=== PATIENT | male | born 1965 | race Caucasian/White ===

== ENCOUNTER 2018-06-19 18:37 | Inpatient (IN) | payer BC ==
[~2018-06-19] VITALS: Ht 177.8 cm; Wt 77.1 kg
[2018-06-19 19:05] LABS: BILIRUBIN,URINE SMALL (NEG); CLARITY,URINE CLOUDY; NITRITE,URINE NEGATIVE (NEG); PROTEIN,URINE 100 mg/dL (NEG-TRACE); UROBILINOGEN,URINE 0.2 mg/dL (0.2 mg/dL)
[2018-06-19 19:10] LABS: BASO # 0.1 x10^3/uL (0.0-0.2); BASO % 1 % (0-3); EOS # 0.1 x10^3/uL (0.0-0.7); EOS % 1 % (0-3); HEMATOCRIT 41.2 % (39.0-53.0); HEMOGLOBIN 13.7 g/dL (13.0-17.5); LYMPH # 3.5 x10^3/uL (1.0-4.8); LYMPH % 30 % (24-48); MEAN CORPUSCULAR HEMOGLOBIN 30 pg (25-35); MEAN CORPUSCULAR HGB CONC 33 g/dL (31-37); MEAN CORPUSCULAR VOLUME 92 fL (79-100); MONO # 0.6 x10^3/uL (0.0-1.1); MONO % 5 % (0-9); NEUT # 7.3 x10^3uL (1.8-7.7); NEUT % 63 % (31-73); PLATELET COUNT 306 x10^3/uL (140-400); WHITE BLOOD COUNT 11.6 x10^3/uL (4.0-11.0)
[2018-06-19 19:11] LABS: COLOR,URINE BROWN
[2018-06-19 19:13] LABS: BACTERIA,URINE 0 /HPF (0-FEW); HYALINE CASTS, URINE OCCASIONAL /HPF; RBC,URINE TNTC /HPF (0-2); SQUAMOUS EPITHELIAL CELL,UR FEW /LPF; WBC,URINE 20-40 /HPF (0-4)
[2018-06-19 19:18] LABS: CALCIUM 9.3 mg/dL (8.5-10.1); CREATININE 1.3 mg/dL (0.7-1.3)
[2018-06-19 19:24] LABS: ALBUMIN 3.7 g/dL (3.4-5.0); ALBUMIN/GLOBULIN RATIO 0.9 (1.0-1.7); TOTAL BILIRUBIN 0.7 mg/dL (0.2-1.0); TOTAL PROTEIN 7.6 g/dL (6.4-8.2)
[2018-06-19] MEDS ORDERED: IV NORMAL SALINE 1000ML BAG 1,000 ML IV ONE ×2 (20:00)
[2018-06-19] MEDS ORDERED: cefTRIAXone IV Push 1 GM VIAL. IVP ONE (20:00)
[2018-06-19] MEDS ORDERED: KETOROLAC 30 MG/ML VIAL. IV ONE (20:30)
--- NOTE | 2018-06-19 20:51 | PHYS DOC ---
Past Medical History Past Medical History: High Cholesterol, Kidney Stone Additional Past Surgical Histo: LEFT SHOULDER ROTATOR CUFF, VASECTOMY Smoking: Cigarettes Additional Information: 1 PPD Alcohol Use: Occasionally Drug Use: None Adult General Chief Complaint Chief Complaint: FLANK PAIN [facility] HPI Patient is a 53 year old male who presents to the due to chief complaint of left flank pain. Patient states that the pain has been present for the last 3 days. Patient states that he went to [facility] and had a CAT scan which showed a left-sided kidney stone with hydronephrosis. At that time he also had a UTI and so patient was started on antibiotics. He was sent to urology yesterday where he went back could not afford the private pay jorge l. Patient comes to the ED today with increased pain in the left side. He also states that his urine is dark. Review of Systems Review of Systems Constitutional: Denies fever or chills [] Eyes: Denies change in visual acuity, redness, or eye pain [] HENT: Denies nasal congestion or sore throat [] Respiratory: Denies cough or shortness of breath [] Cardiovascular: No additional information not addressed in HPI [] GI: Complains of Left flank pain : Complains of dysuria Musculoskeletal: Denies back pain or joint pain [] Integument: Denies rash or skin lesions [] Neurologic: Denies headache, focal weakness or sensory changes [] Endocrine: Denies polyuria or polydipsia [] All other systems were reviewed and found to be within normal limits, except as documented in this note. Current Medications Current Medications Current Medications Medications (Trade) Dose Ordered Sig/Angi Start Time Stop Time Status Last Admin Dose Admin Ceftriaxone Sodium (Rocephin) 1 gm 1X ONCE 06/19/18 20:00 06/19/18 20:01 DC 06/19/18 19:53 1 GM Ketorolac Tromethamine (Toradol 30mg Vial) 30 mg 1X ONCE 06/19/18 20:30 06/19/18 20:31 DC 06/19/18 20:11 30 MG Sodium Chloride 1,000 ml @ 1,000 mls/hr 1X ONCE 06/19/18 20:00 06/19/18 20:59 DC 06/19/18 19:54 1,000 MLS/HR Allergies Allergies Physical Exam Physical Exam Constitutional: Well developed, well nourished, no acute distress, non-toxic appearance. HENT: Normocephalic, atraumatic, normocaphalic Eyes: PERRL, EOMI Neck: Normal range of motion, no tenderness, supple Cardiovascular:Heart rate regular rhythm, no murmur Resp: Bilateral breath sounds clear to auscultation Abdomen: Left flank tenderness Skin: Warm, dry, no erythema, no rash. Back: No tenderness, no CVA tenderness. Extremities: No tenderness, ROM intact, no edema. Neurologic: Alert and oriented X 3, normal motor function, normal sensory function, no focal deficits noted. Psychologic: Affect normal, judgement normal, mood normal. Current Patient Data Vital Signs Vital Signs Date Time Temp Pulse Resp B/P (MAP) Pulse Ox O2 Delivery O2 Flow Rate FiO2 06/19/18 20:48 68 16 130/73 (92) 100 Room Air 06/19/18 18:43 98.1 98.1 Lab Values Laboratory Tests Test 06/19/18 18:45 06/19/18 19:00 Urine Collection Type Unknown Urine Color Brown Urine Clarity Cloudy Urine pH 5.0 Urine Specific [place] 1.020 Urine Protein 100 mg/dL (NEG-TRACE) Urine Glucose (UA) Negative mg/dL (NEG) Urine Ketones (Stick) Trace mg/dL (NEG) Urine Blood Large (NEG) Urine Nitrite Negative (NEG) Urine Bilirubin Small (NEG) Urine Urobilinogen Dipstick 0.2 mg/dL (0.2 mg/dL) Urine Leukocyte Esterase Small (NEG) Urine RBC Tntc /HPF (0-2) Urine WBC 20-40 /HPF (0-4) Urine Squamous Epithelial Cells Few /LPF Urine Bacteria 0 /HPF (0-FEW) Urine Hyaline Casts Occasional /HPF Urine Mucus Mod /LPF White Blood Count 11.6 x10^3/uL (4.0-11.0) H Red Blood Count 4.50 x10^6/uL (4.30-5.70) Hemoglobin 13.7 g/dL (13.0-17.5) Hematocrit 41.2 % (39.0-53.0) Mean Corpuscular Volume 92 fL (79-100) Mean Corpuscular Hemoglobin 30 pg (25-35) Mean Corpuscular Hemoglobin Concent 33 g/dL (31-37) Red Cell Distribution Width 14.0 % (11.5-14.5) Platelet Count 306 x10^3/uL (140-400) Neutrophils (%) (Auto) 63 % (31-73) Lymphocytes (%) (Auto) 30 % (24-48) Monocytes (%) (Auto) 5 % (0-9) Eosinophils (%) (Auto) 1 % (0-3) Basophils (%) (Auto) 1 % (0-3) Neutrophils # (Auto) 7.3 x10^3uL (1.8-7.7) Lymphocytes # (Auto) 3.5 x10^3/uL (1.0-4.8) Monocytes # (Auto) 0.6 x10^3/uL (0.0-1.1) Eosinophils # (Auto) 0.1 x10^3/uL (0.0-0.7) Basophils # (Auto) 0.1 x10^3/uL (0.0-0.2) Sodium Level 136 mmol/L (136-145) Potassium Level 4.0 mmol/L (3.5-5.1) Chloride Level 100 mmol/L (98-107) Carbon Dioxide Level 27 mmol/L (21-32) Anion Gap 9 (6-14) Blood Urea Nitrogen 26 mg/dL (8-26) Creatinine 1.3 mg/dL (0.7-1.3) Estimated GFR (Cockcroft-Gault) 58.0 BUN/Creatinine Ratio 20 (6-20) Glucose Level 92 mg/dL (70-99) Calcium Level 9.3 mg/dL (8.5-10.1) Total Bilirubin 0.7 mg/dL (0.2-1.0) Aspartate Amino Transferase (AST) 17 U/L (15-37) Alanine Aminotransferase (ALT) 19 U/L (16-63) Alkaline Phosphatase 74 U/L (46-116) Total Protein 7.6 g/dL (6.4-8.2) Albumin 3.7 g/dL (3.4-5.0) Albumin/Globulin Ratio 0.9 (1.0-1.7) L Laboratory Tests 06/19/18 19:00 Laboratory Tests 06/19/18 19:00 EKG EKG [] Radiology/Procedures Radiology/Procedures [] Impressions: PROCEDURE: KUB Single view supine abdomen HISTORY: Left-sided pain. Single portable image obtained without prior for comparison. There is a small calcification overlying the lower right renal shadow could represent a calculus versus bowel content. Similar, possible small left renal calculus versus overlying density. Bowel gas pattern is nonobstructive. Difficult to exclude free intraperitoneal gas on this image. Skeletal structures appear grossly intact. IMPRESSION: Possible small renal calculi. Electronically signed by: Sunil Barger MD (06/19/2018 9:03 PM) [facility] Course & Med Decision Making Course & Med Decision Making Pertinent Labs and Imaging studies reviewed. (See chart for details) Ordered labs, UA, IV fluids. Labs show the patient has elevated WBC count. UA shows that patient has a UTI. CT scan results from [facility] shows that patient has a 5 mm stone in the left ureter with mild left-sided hydronephrosis. IV Rocephin given in the ED. IV pain medicine given the ED. N infected ureteral stone patient should be admitted to the hospital for further evaluation and treatment. Discussed results and plan of care with patient and family. We'll page hospitalist convex grinder for admission Discussed case with Dr. Ley who accepts admission. Dragon Disclaimer Dragon Disclaimer This electronic medical record was generated, in whole or in part, using a voice recognition dictation system. Departure Departure Referrals: UNKNOWN PCP NAME (PCP) CHANDNI RODRIGUEZ DO June 19, 2018 20:51
--- NOTE | 2018-06-19 21:06 | RAD ---
Single view supine abdomen HISTORY: Left-sided pain. Single portable image obtained without prior for comparison. There is a small calcification overlying the lower right renal shadow could represent a calculus versus bowel content. Similar, possible small left renal calculus versus overlying density. Bowel gas pattern is nonobstructive. Difficult to exclude free intraperitoneal gas on this image. Skeletal structures appear grossly intact. IMPRESSION: Possible small renal calculi. Electronically signed by: Sunil Barger MD (06/19/2018 9:03 PM) [facility]
[2018-06-19 22:20] VITALS: BP 106/62
[2018-06-20] MEDS ORDERED: TEMAZEPAM 15 MG CAPSULE PO PRN (01:45)
[2018-06-20] MEDS ORDERED: MORPHINE SULFATE 2 MG/ML VIAL. IV PRN (01:45)
[2018-06-20 02:55] VITALS: BP 94/52
[2018-06-20] MEDS: IV NORMAL SALINE 1000ML BAG 1,000 ML IV SCH ×2 (04:17→15:05)
[2018-06-20 07:00] VITALS: BP 102/64
--- NOTE | 2018-06-20 08:22 | NUR ---
SW following for discharge planning. Discussed with RN, pt is from home with spouse. Currently NPO, waiting urology consult to determine plan of care. No SW needs at this time. SW will continue to follow.
[2018-06-20] MEDS ORDERED: IOHEXOL 300 MG/ML 100ML VIAL. IV ONE (08:45)
[2018-06-20] MEDS ORDERED: CONTRAST GIVEN. MC PRN (09:00)
--- NOTE | 2018-06-20 09:14 | PDOC2 ---
ALEX LOPEZ APRN 06/20/18 0914: UROLOGY CONSULT Date of Consult Date of Consult DATE: 06/20/18 TIME: 09:06 Reason for Consult Reason for Consult: Possible Kidney stone Source Source: Patient History of Present Illness Reason for Visit: This 53 year old male was seen in [place] a couple of days ago and a CT scan was done at the ER. They told him he had a kidney stone on the right side and then dismissed him. The pain started back up again on the left side last night, alone with some Nausea and vomiting. He did have some dysuria but no hematuria. He is feeling fine right now, with pain zero/10 but is uncomfortable with going home until he is sure the stone is no longer there. This is the 4th of 5th time he has had a kidney stone. They usually pass on their own; he has never had to have surgery for them, but he is not sure that he will have this kind of luck this time. He denies LUTS, history of BPH or prostate cancer or other kidney problems. Past Medical History Cardiovascular: No pertinent hx Pulmonary: No pertinent hx GI: No pertinent hx Renal/: Other (4-5 times in the past has had kidney stones ) Current Problem List Problems: (1) Left ureteral stone (2) Ureterolithiasis Current Medications Current Medications Current Medications Ceftriaxone Sodium (Rocephin) 1 gm 1X ONCE IVP Last administered on 06/19/18at 1 9:53; Start 06/19/18 at 20:00; Stop 06/19/18 at 20:01; Status DC Info (CONTRAST GIVEN -- Rx MONITORING) 1 each PRN DAILY PRN MC SEE COMMENTS; Start 06/20/18 at 09:00; Stop 06/22/18 at 08:59 Iohexol (Omnipaque 300 Mg/ml) 75 ml 1X ONCE IV ; Start 06/20/18 at 08:45; Stop 06/20/18 at 08:46; Status DC Ketorolac Tromethamine (Toradol 30mg Vial) 30 mg 1X ONCE IV Last administered on 06/19/18at 20:11; Start 06/19/18 at 20:30; Stop 06/19/18 at 20:31; Status DC Morphine Sulfate (Morphine Sulfate) 2 mg PRN Q2HR PRN IV PAIN; Start 06/20/18 at 01:45 Sodium Chloride 1,000 ml @ 75 mls/hr [id number] IV Last administered on 06/20/18at 04:17; Start 06/20/18 at 01:45 Sodium Chloride 1,000 ml @ 1,000 mls/hr 1X ONCE IV Last administered on 06/19/18at 19:54; Start 06/19/18 at 20:00; Stop 06/19/18 at 20:59; Status DC Sodium Chloride 1,000 ml @ 1,000 mls/hr 1X ONCE IV Last administered on 06/19/18at 19:54; Start 06/19/18 at 20:00; Stop 06/19/18 at 20:59; Status DC Temazepam (Restoril) 15 mg PRN QHS PRN PO INSOMNIA; Start 06/20/18 at 01:45 Allergies Allergies: Coded Allergies: levofloxacin (Verified Allergy, Unknown, 06/19/18) ROS Review Of Systems: CONSTITUTIONAL: No fever or chills EYES: No recent changes SKIN: No rash or itching CARDIOVASCULAR: No chest pain, syncope, palpitations, or edema RESPIRATORY: No SOB or cough GASTROINTESTINAL: + nausea, no vomiting . + LLQ pain NEUROLOGICAL: No headaches or weakness ENDOCRINE: No cold or heat intolerance GENITOURINARY: + Dysuria last night, but improved today MUSCULOSKELETAL: No back pain or joint pain LYMPHATICS: No enlarged lymph nodes PSYCHIATRIC: No anxiety or depression Physical Exam Physical Exam: General: Pleasant, no acute distress, well groomed Eyes: conjunctiva anicteric, eyes full range of motion ENT: moist oral mucosa, normal dentition Neck: Trachea midline, no masses Respiratory: unlabored breathing, not using accessory muscles, Back: No CVA pain either side on testing Abdomen: nontender, nondistended, no hepatosplenomegaly, no masses Skin: no rashes or skin lesions on visualized skin Psych: normal mood, affect. Alert and oriented x 3. Vitals VITALS Vital Signs Date Time Temp Pulse Resp B/P (MAP) Pulse Ox O2 Delivery O2 Flow Rate FiO2 06/20/18 07:00 98.0 55 20 102/64 (77) 95 Room Air 98.0 Labs Labs Laboratory Tests Test 06/19/18 18:45 06/19/18 19:00 Urine Collection Type Unknown Urine Color Brown Urine Clarity Cloudy Urine pH 5.0 Urine Specific [place] 1.020 Urine Protein 100 mg/dL (NEG-TRACE) Urine Glucose (UA) Negative mg/dL (NEG) Urine Ketones (Stick) Trace mg/dL (NEG) Urine Blood Large (NEG) Urine Nitrite Negative (NEG) Urine Bilirubin Small (NEG) Urine Urobilinogen Dipstick 0.2 mg/dL (0.2 mg/dL) Urine Leukocyte Esterase Small (NEG) Urine RBC Tntc /HPF (0-2) Urine WBC 20-40 /HPF (0-4) Urine Squamous Epithelial Cells Few /LPF Urine Bacteria 0 /HPF (0-FEW) Urine Hyaline Casts Occasional /HPF Urine Mucus Mod /LPF White Blood Count 11.6 x10^3/uL (4.0-11.0) Red Blood Count 4.50 x10^6/uL (4.30-5.70) Hemoglobin 13.7 g/dL (13.0-17.5) Hematocrit 41.2 % (39.0-53.0) Mean Corpuscular Volume 92 fL (79-100) Mean Corpuscular Hemoglobin 30 pg (25-35) Mean Corpuscular Hemoglobin Concent 33 g/dL (31-37) Red Cell Distribution Width 14.0 % (11.5-14.5) Platelet Count 306 x10^3/uL (140-400) Neutrophils (%) (Auto) 63 % (31-73) Lymphocytes (%) (Auto) 30 % (24-48) Monocytes (%) (Auto) 5 % (0-9) Eosinophils (%) (Auto) 1 % (0-3) Basophils (%) (Auto) 1 % (0-3) Neutrophils # (Auto) 7.3 x10^3uL (1.8-7.7) Lymphocytes # (Auto) 3.5 x10^3/uL (1.0-4.8) Monocytes # (Auto) 0.6 x10^3/uL (0.0-1.1) Eosinophils # (Auto) 0.1 x10^3/uL (0.0-0.7) Basophils # (Auto) 0.1 x10^3/uL (0.0-0.2) Sodium Level 136 mmol/L (136-145) Potassium Level 4.0 mmol/L (3.5-5.1) Chloride Level 100 mmol/L (98-107) Carbon Dioxide Level 27 mmol/L (21-32) Anion Gap 9 (6-14) Blood Urea Nitrogen 26 mg/dL (8-26) Creatinine 1.3 mg/dL (0.7-1.3) Estimated GFR (Cockcroft-Gault) 58.0 BUN/Creatinine Ratio 20 (6-20) Glucose Level 92 mg/dL (70-99) Calcium Level 9.3 mg/dL (8.5-10.1) Total Bilirubin 0.7 mg/dL (0.2-1.0) Aspartate Amino Transf (AST/SGOT) 17 U/L (15-37) Alanine Aminotransferase (ALT/SGPT) 19 U/L (16-63) Alkaline Phosphatase 74 U/L (46-116) Total Protein 7.6 g/dL (6.4-8.2) Albumin 3.7 g/dL (3.4-5.0) Albumin/Globulin Ratio 0.9 (1.0-1.7) Laboratory Tests Test 06/19/18 18:45 06/19/18 19:00 Urine Collection Type Unknown Urine Color Brown Urine Clarity Cloudy Urine pH 5.0 Urine Specific [place] 1.020 Urine Protein 100 mg/dL (NEG-TRACE) Urine Glucose (UA) Negative mg/dL (NEG) Urine Ketones (Stick) Trace mg/dL (NEG) Urine Blood Large (NEG) Urine Nitrite Negative (NEG) Urine Bilirubin Small (NEG) Urine Urobilinogen Dipstick 0.2 mg/dL (0.2 mg/dL) Urine Leukocyte Esterase Small (NEG) Urine RBC Tntc /HPF (0-2) Urine WBC 20-40 /HPF (0-4) Urine Squamous Epithelial Cells Few /LPF Urine Bacteria 0 /HPF (0-FEW) Urine Hyaline Casts Occasional /HPF Urine Mucus Mod /LPF White Blood Count 11.6 x10^3/uL (4.0-11.0) Red Blood Count 4.50 x10^6/uL (4.30-5.70) Hemoglobin 13.7 g/dL (13.0-17.5) Hematocrit 41.2 % (39.0-53.0) Mean Corpuscular Volume 92 fL (79-100) Mean Corpuscular Hemoglobin 30 pg (25-35) Mean Corpuscular Hemoglobin Concent 33 g/dL (31-37) Red Cell Distribution Width 14.0 % (11.5-14.5) Platelet Count 306 x10^3/uL (140-400) Neutrophils (%) (Auto) 63 % (31-73) Lymphocytes (%) (Auto) 30 % (24-48) Monocytes (%) (Auto) 5 % (0-9) Eosinophils (%) (Auto) 1 % (0-3) Basophils (%) (Auto) 1 % (0-3) Neutrophils # (Auto) 7.3 x10^3uL (1.8-7.7) Lymphocytes # (Auto) 3.5 x10^3/uL (1.0-4.8) Monocytes # (Auto) 0.6 x10^3/uL (0.0-1.1) Eosinophils # (Auto) 0.1 x10^3/uL (0.0-0.7) Basophils # (Auto) 0.1 x10^3/uL (0.0-0.2) Sodium Level 136 mmol/L (136-145) Potassium Level 4.0 mmol/L (3.5-5.1) Chloride Level 100 mmol/L (98-107) Carbon Dioxide Level 27 mmol/L (21-32) Anion Gap 9 (6-14) Blood Urea Nitrogen 26 mg/dL (8-26) Creatinine 1.3 mg/dL (0.7-1.3) Estimated GFR (Cockcroft-Gault) 58.0 BUN/Creatinine Ratio 20 (6-20) Glucose Level 92 mg/dL (70-99) Calcium Level 9.3 mg/dL (8.5-10.1) Total Bilirubin 0.7 mg/dL (0.2-1.0) Aspartate Amino Transf (AST/SGOT) 17 U/L (15-37) Alanine Aminotransferase (ALT/SGPT) 19 U/L (16-63) Alkaline Phosphatase 74 U/L (46-116) Total Protein 7.6 g/dL (6.4-8.2) Albumin 3.7 g/dL (3.4-5.0) Albumin/Globulin Ratio 0.9 (1.0-1.7) Images Images KUB IMPRESSION: Possible small renal calculi. Assessment/Plan Assessment/Plan Discussed options in detail with patient and spouse to include watchful waiting with medications and clinic follow up vs repeat CT scan in house today. Couple chooses repeat CT scan. Will get CTU in light of UA hematuria + heavy smoking history. Pt to remain NPO until after imaging complete. Dr. Freitas to round on patient later today or tomorrow ERIN FREITAS MD 06/20/18 1314: UROLOGY CONSULT Assessment/Plan Assessment/Plan Agree with assessment and plan, CT scan pending. May need outpatient cystoscopy if no stone seen on CT. ALEX LOPEZ APRN June 20, 2018 09:14 ERIN FREITAS MD June 20, 2018 13:14
--- NOTE | 2018-06-20 10:33 | PDOC1 ---
History and Physical Date of Admission Date of Admission DATE: 06/20/18 TIME: 10:33 Identification/Chief Complaint Chief Complaint SEEN IN ER Patient states that the pain has been present for the last 3 days. Patient states that he went to [facility] ER and had a CAT scan which showed a left-sided kidney stone with hydronephrosis. At that time he also had a UTI and so patient was started on antibiotics. He was sent to urology 06/19 where he went back could not afford the private pay jorge l. Patient came to the ED 06/20 with increased pain in the left side, urology consulted Past Medical History Past Medical History Past Medical History Past Medical History: High Cholesterol, Kidney Stone Additional Past Surgical Histo: LEFT SHOULDER ROTATOR CUFF, VASECTOMY Smoking: Cigarettes Additional Information: 1 PPD Alcohol Use: Occasionally Drug Use: None FAMILY HX HYPERLIPIDEMIA Cardiovascular: No pertinent hx Pulmonary: No pertinent hx GI: No pertinent hx Renal/: Other (4-5 times in the past has had kidney stones ) Family History Family History: High Cholestrol Social History Smoke: No ALCOHOL: none Drugs: None Current Problem List Problem List Problems Medical Problems: (1) Ureterolithiasis Status: Acute (2) UTI (urinary tract infection) Status: Acute Current Medications Current Medications Current Medications Sodium Chloride 1,000 ml @ 1,000 mls/hr 1X ONCE IV Last administered on at 19:54; Start 06/19/18 at 20:00; Stop 06/19/18 at 20:59; Status DC Sodium Chloride 1,000 ml @ 1,000 mls/hr 1X ONCE IV Last administered on 06/19/18at 19:54; Start 06/19/18 at 20:00; Stop 06/19/18 at 20:59; Status DC Ceftriaxone Sodium (Rocephin) 1 gm 1X ONCE IVP Last administered on 06/19/18at 19:53; Start 06/19/18 at 20:00; Stop 06/19/18 at 20:01; Status DC Ketorolac Tromethamine (Toradol 30mg Vial) 30 mg 1X ONCE IV Last administered on 06/19/18at 20:11; Start 06/19/18 at 20:30; Stop 06/19/18 at 20:31; Status DC Sodium Chloride 1,000 ml @ 75 mls/hr [id number] IV Last administered on 06/20/18at 04:17; Start 06/20/18 at 01:45 Morphine Sulfate (Morphine Sulfate) 2 mg PRN Q2HR PRN IV PAIN; Start 06/20/18 at 01:45 Temazepam (Restoril) 15 mg PRN QHS PRN PO INSOMNIA; Start 06/20/18 at 01:45 Iohexol (Omnipaque 300 Mg/ml) 75 ml 1X ONCE IV Last administered on 06/20/18at 08:45; Start 06/20/18 at 08:45; Stop 06/20/18 at 08:46; Status DC Info (CONTRAST GIVEN -- Rx MONITORING) 1 each PRN DAILY PRN MC SEE COMMENTS; Start 06/20/18 at 09:00; Stop 06/22/18 at 08:59 Allergies Allergies: Coded Allergies: levofloxacin (Verified Allergy, Unknown, 06/19/18) ROS Review of System Review of Systems Review of Systems Constitutional: Denies fever or chills [] Eyes: Denies change in visual acuity, redness, or eye pain [] HENT: Denies nasal congestion or sore throat [] Respiratory: Denies cough or shortness of breath [] Cardiovascular: No additional information not addressed in HPI [] GI: Complains of Left flank pain better with iv pain meds : Complains of dysuria Musculoskeletal: Denies back pain or joint pain [] Integument: Denies rash or skin lesions [] Neurologic: Denies headache, focal weakness or sensory changes [] Endocrine: Denies polyuria or polydipsia [] 14 pt systems were reviewed and found to be within normal limits, except as documented Gastrointestinal: Yes Abdominal Pain Physical Exam Physical Exam Physical Exam Physical Exam Constitutional: Well developed, well nourished, no acute distress, non-toxic appearance. HENT: Normocephalic, atraumatic, normocaphalic Eyes: PERRL, EOMI Neck: Normal range of motion, no tenderness, supple Cardiovascular:Heart rate regular rhythm, no murmur Resp: Bilateral breath sounds clear to auscultation Abdomen: Left flank tenderness Skin: Warm, dry, no erythema, no rash. Back: No tenderness, no CVA tenderness. Extremities: No tenderness, ROM intact, no edema. Neurologic: Alert and oriented X 3, normal motor function, normal sensory function, no focal deficits noted. Psychologic: Affect normal, judgement normal, mood normal. General: Alert, Oriented X3, Cooperative, No acute distress HEENT: Atraumatic, PERRLA Lungs: Clear to auscultation Heart: S1S2, RRR, no thrills, no gallops Breasts: Not examined Abdomen: Soft Rectal Exam: not examined Extremities: No cyanosis Skin: No breakdown Neuro: Normal gait, Normal speech, Cranial nerves 3-12 NL Psych/Mental Status: Mental status NL, Mood NL Vitals Vitals Vital Signs Date Time Temp Pulse Resp B/P (MAP) Pulse Ox O2 Delivery O2 Flow Rate FiO2 06/20/18 07:00 98.0 55 20 102/64 (77) 95 Room Air 98.0 Labs Labs Laboratory Tests Test 06/19/18 18:45 06/19/18 19:00 Urine Collection Type Unknown Urine Color Brown Urine Clarity Cloudy Urine pH 5.0 Urine Specific [place] 1.020 Urine Protein 100 mg/dL (NEG-TRACE) Urine Glucose (UA) Negative mg/dL (NEG) Urine Ketones (Stick) Trace mg/dL (NEG) Urine Blood Large (NEG) Urine Nitrite Negative (NEG) Urine Bilirubin Small (NEG) Urine Urobilinogen Dipstick 0.2 mg/dL (0.2 mg/dL) Urine Leukocyte Esterase Small (NEG) Urine RBC Tntc /HPF (0-2) Urine WBC 20-40 /HPF (0-4) Urine Squamous Epithelial Cells Few /LPF Urine Bacteria 0 /HPF (0-FEW) Urine Hyaline Casts Occasional /HPF Urine Mucus Mod /LPF White Blood Count 11.6 x10^3/uL (4.0-11.0) Red Blood Count 4.50 x10^6/uL (4.30-5.70) Hemoglobin 13.7 g/dL (13.0-17.5) Hematocrit 41.2 % (39.0-53.0) Mean Corpuscular Volume 92 fL (79-100) Mean Corpuscular Hemoglobin 30 pg (25-35) Mean Corpuscular Hemoglobin Concent 33 g/dL (31-37) Red Cell Distribution Width 14.0 % (11.5-14.5) Platelet Count 306 x10^3/uL (140-400) Neutrophils (%) (Auto) 63 % (31-73) Lymphocytes (%) (Auto) 30 % (24-48) Monocytes (%) (Auto) 5 % (0-9) Eosinophils (%) (Auto) 1 % (0-3) Basophils (%) (Auto) 1 % (0-3) Neutrophils # (Auto) 7.3 x10^3uL (1.8-7.7) Lymphocytes # (Auto) 3.5 x10^3/uL (1.0-4.8) Monocytes # (Auto) 0.6 x10^3/uL (0.0-1.1) Eosinophils # (Auto) 0.1 x10^3/uL (0.0-0.7) Basophils # (Auto) 0.1 x10^3/uL (0.0-0.2) Sodium Level 136 mmol/L (136-145) Potassium Level 4.0 mmol/L (3.5-5.1) Chloride Level 100 mmol/L (98-107) Carbon Dioxide Level 27 mmol/L (21-32) Anion Gap 9 (6-14) Blood Urea Nitrogen 26 mg/dL (8-26) Creatinine 1.3 mg/dL (0.7-1.3) Estimated GFR (Cockcroft-Gault) 58.0 BUN/Creatinine Ratio 20 (6-20) Glucose Level 92 mg/dL (70-99) Calcium Level 9.3 mg/dL (8.5-10.1) Total Bilirubin 0.7 mg/dL (0.2-1.0) Aspartate Amino Transf (AST/SGOT) 17 U/L (15-37) Alanine Aminotransferase (ALT/SGPT) 19 U/L (16-63) Alkaline Phosphatase 74 U/L (46-116) Total Protein 7.6 g/dL (6.4-8.2) Albumin 3.7 g/dL (3.4-5.0) Albumin/Globulin Ratio 0.9 (1.0-1.7) Laboratory Tests Test 06/19/18 18:45 06/19/18 19:00 Urine Collection Type Unknown Urine Color Brown Urine Clarity Cloudy Urine pH 5.0 Urine Specific [place] 1.020 Urine Protein 100 mg/dL (NEG-TRACE) Urine Glucose (UA) Negative mg/dL (NEG) Urine Ketones (Stick) Trace mg/dL (NEG) Urine Blood Large (NEG) Urine Nitrite Negative (NEG) Urine Bilirubin Small (NEG) Urine Urobilinogen Dipstick 0.2 mg/dL (0.2 mg/dL) Urine Leukocyte Esterase Small (NEG) Urine RBC Tntc /HPF (0-2) Urine WBC 20-40 /HPF (0-4) Urine Squamous Epithelial Cells Few /LPF Urine Bacteria 0 /HPF (0-FEW) Urine Hyaline Casts Occasional /HPF Urine Mucus Mod /LPF White Blood Count 11.6 x10^3/uL (4.0-11.0) Red Blood Count 4.50 x10^6/uL (4.30-5.70) Hemoglobin 13.7 g/dL (13.0-17.5) Hematocrit 41.2 % (39.0-53.0) Mean Corpuscular Volume 92 fL (79-100) Mean Corpuscular Hemoglobin 30 pg (25-35) Mean Corpuscular Hemoglobin Concent 33 g/dL (31-37) Red Cell Distribution Width 14.0 % (11.5-14.5) Platelet Count 306 x10^3/uL (140-400) Neutrophils (%) (Auto) 63 % (31-73) Lymphocytes (%) (Auto) 30 % (24-48) Monocytes (%) (Auto) 5 % (0-9) Eosinophils (%) (Auto) 1 % (0-3) Basophils (%) (Auto) 1 % (0-3) Neutrophils # (Auto) 7.3 x10^3uL (1.8-7.7) Lymphocytes # (Auto) 3.5 x10^3/uL (1.0-4.8) Monocytes # (Auto) 0.6 x10^3/uL (0.0-1.1) Eosinophils # (Auto) 0.1 x10^3/uL (0.0-0.7) Basophils # (Auto) 0.1 x10^3/uL (0.0-0.2) Sodium Level 136 mmol/L (136-145) Potassium Level 4.0 mmol/L (3.5-5.1) Chloride Level 100 mmol/L (98-107) Carbon Dioxide Level 27 mmol/L (21-32) Anion Gap 9 (6-14) Blood Urea Nitrogen 26 mg/dL (8-26) Creatinine 1.3 mg/dL (0.7-1.3) Estimated GFR (Cockcroft-Gault) 58.0 BUN/Creatinine Ratio 20 (6-20) Glucose Level 92 mg/dL (70-99) Calcium Level 9.3 mg/dL (8.5-10.1) Total Bilirubin 0.7 mg/dL (0.2-1.0) Aspartate Amino Transf (AST/SGOT) 17 U/L (15-37) Alanine Aminotransferase (ALT/SGPT) 19 U/L (16-63) Alkaline Phosphatase 74 U/L (46-116) Total Protein 7.6 g/dL (6.4-8.2) Albumin 3.7 g/dL (3.4-5.0) Albumin/Globulin Ratio 0.9 (1.0-1.7) Images Images CT of the abdomen and pelvis with and without contrast (CT urogram), 06/20/2018: HISTORY: Hematuria Multidetector CT imaging was performed through the abdomen and pelvis prior to and following an IV bolus injection of iodinated contrast material. The postcontrast scans were obtained through the kidneys in a nephrographic phase and through the entire urinary tract in an excretory phase. 3-D MIP images of the urinary tract were constructed from the excretory phase data. There are 3 small intrarenal calculi on the left, the largest of which measures proximally 4 mm. There are 2 small intrarenal calculi on the right, the largest of which measures 5 mm. There is no evidence of a right renal mass. The right renal collecting system and right ureter are unremarkable. Prostatic calcifications are noted. On the left there are 3 small low density renal lesions. The largest of these lies in the lower pole and measures 1.[address] number's compatible with a cyst. The other 2 lesions are too small to definitively characterize but are also probably cysts. The left renal pelvis and proximal and mid left ureter are mildly prominent. There is a 6 mm calculus within the distal left ureter at the mid to upper sacral level. It appears to be causing only mild partial obstruction. The distal left ureter at the UVJ level is unremarkable. The partially filled urinary bladder shows no abnormality. No hepatic abnormality is identified. The gallbladder is unremarkable. No pancreatic abnormality is seen. The spleen is of normal size. Moderate aortoiliac calcific plaquing is present without evidence of aneurysm. Multiple small mesenteric lymph nodes are seen without evidence of pathologic enlargement. The bowel loops are not dilated. No free fluid or free air is evident in the abdomen or pelvis. IMPRESSION: 1. Small bilateral intrarenal calculi. 2. 6 mm distal left ureteral calculus with only mild associated partial obstruction. 3. Probable left renal cysts. PQRS Compliance Statement: One or more of the following individualized dose reduction techniques were utilized for this examination: 1. Automated exposure control 2. Adjustment of the mA and/or kV according to patient size 3. Use of iterative reconstruction technique Electronically signed by: Felipe Anderson MD (06/20/2018 11:59 AM) [facility] DICTATED and SIGNED BY: FELIPE ANDERSON MD DATE: 06/20/18 1159 VTE Prophylaxis Ordered VTE Prophylaxis Devices: Yes VTE Pharmacological Prophylaxi: Yes Assessment/Plan Assessment/Plan impression intractable pain, ureteral colic 6 mm stone in the left ureter with mild left-sided hydronephrosis. 6 mm distal left ureteral calculus with only mild associated partial obstruction. plan admit iv hydration iv pain control dvt prophylaxis ALLI SPARROW MD June 20, 2018 10:33
[2018-06-20 11:00] VITALS: BP 119/69
--- NOTE | 2018-06-20 12:02 | RAD ---
CT of the abdomen and pelvis with and without contrast (CT urogram), 06/20/2018: HISTORY: Hematuria Multidetector CT imaging was performed through the abdomen and pelvis prior to and following an IV bolus injection of iodinated contrast material. The postcontrast scans were obtained through the kidneys in a nephrographic phase and through the entire urinary tract in an excretory phase. 3-D MIP images of the urinary tract were constructed from the excretory phase data. There are 3 small intrarenal calculi on the left, the largest of which measures proximally 4 mm. There are 2 small intrarenal calculi on the right, the largest of which measures 5 mm. There is no evidence of a right renal mass. The right renal collecting system and right ureter are unremarkable. Prostatic calcifications are noted. On the left there are 3 small low density renal lesions. The largest of these lies in the lower pole and measures 1.[address] number's compatible with a cyst. The other 2 lesions are too small to definitively characterize but are also probably cysts. The left renal pelvis and proximal and mid left ureter are mildly prominent. There is a 6 mm calculus within the distal left ureter at the mid to upper sacral level. It appears to be causing only mild partial obstruction. The distal left ureter at the UVJ level is unremarkable. The partially filled urinary bladder shows no abnormality. No hepatic abnormality is identified. The gallbladder is unremarkable. No pancreatic abnormality is seen. The spleen is of normal size. Moderate aortoiliac calcific plaquing is present without evidence of aneurysm. Multiple small mesenteric lymph nodes are seen without evidence of pathologic enlargement. The bowel loops are not dilated. No free fluid or free air is evident in the abdomen or pelvis. IMPRESSION: 1. Small bilateral intrarenal calculi. 2. 6 mm distal left ureteral calculus with only mild associated partial obstruction. 3. Probable left renal cysts. PQRS Compliance Statement: One or more of the following individualized dose reduction techniques were utilized for this examination: 1. Automated exposure control 2. Adjustment of the mA and/or kV according to patient size 3. Use of iterative reconstruction technique Electronically signed by: Felipe Anderson MD (06/20/2018 11:59 AM) [facility]
[2018-06-20] MEDS: ENOXAPARIN 40 MG/0.4 ML SYRINGE. SQ SCH (14:00)
[2018-06-20 15:00] VITALS: BP 98/70
[2018-06-20] MEDS: NICOTINE 21MG PATCH. TD SCH (15:13)
[2018-06-20 19:00] VITALS: BP 99/65
[2018-06-20 23:00] VITALS: BP 111/64
[2018-06-21 03:00] VITALS: BP 109/69
[2018-06-21] MEDS: IV NORMAL SALINE 1000ML BAG 1,000 ML IV SCH ×2 (05:38→10:46)
[2018-06-21] MEDS: ENOXAPARIN 40 MG/0.4 ML SYRINGE. SQ SCH (06:51)
[2018-06-21 07:00] VITALS: BP 112/70
[2018-06-21] MEDS ORDERED: IV RINGERS,LACTATED 1000ML 1,000 ML IV SCH (07:14)
[2018-06-21] MEDS ORDERED: MORPHINE SULFATE 2 MG/ML VIAL. IV PRN (07:15)
[2018-06-21] MEDS ORDERED: HYDROmorphone 2 MG/ML VIAL IV PRN (07:15)
[2018-06-21] MEDS ORDERED: ONDANSETRON PF 4 MG/2 ML VIAL. IV PRN (07:15)
[2018-06-21] MEDS ORDERED: fentaNYL PF VIAL 100 MCG/2 ML VIAL IV PRN ×2 (07:15)
[2018-06-21] MEDS ORDERED: PROCHLORPERAZINE 10 MG/2 ML VIAL. IV PRN (07:15)
[2018-06-21] MEDS: NICOTINE 21MG PATCH. TD SCH (07:42)
[2018-06-21] MEDS ORDERED: IOHEXOL 300 MG/ML 50 ML VIAL. ONE (07:45)
--- NOTE | 2018-06-21 07:58 | PDOC ---
PROGRESS NOTES History of Present Illness History of Present Illness VTE Prophylaxis Ordered VTE Prophylaxis Devices: Yes VTE Pharmacological Prophylaxi: Yes Assessment/Plan Assessment/Plan impression intractable pain, ureteral colic 6 mm stone in the left ureter with mild left-sided hydronephrosis. 6 mm distal left ureteral calculus with only mild associated partial obstruction. plan admit iv hydration iv pain control dvt prophylaxis urology consult Vitals Vitals Vital Signs Date Time Temp Pulse Resp B/P (MAP) Pulse Ox O2 Delivery O2 Flow Rate FiO2 06/21/18 07:03 Room Air 06/21/18 03:00 98.3 58 18 109/69 (82) 96 98.3 Physical Exam General: Alert, Oriented X3, Cooperative, No acute distress, mild distress Heart: Regular rate Lungs: Clear Abdomen: Normal bowel sounds, Soft Extremities: No cyanosis Skin: No breakdown Assessment and Plan Assessmemt and Plan Problems Medical Problems: (1) Ureterolithiasis Status: Acute (2) UTI (urinary tract infection) Status: Acute Comment Review of Relevant I have reviewed the following items wil (where applicable) has been applied. Labs Laboratory Tests Test 06/19/18 18:45 06/19/18 19:00 Urine Collection Type Unknown Urine Color Brown Urine Clarity Cloudy Urine pH 5.0 Urine Specific [place] 1.020 Urine Protein 100 mg/dL (NEG-TRACE) Urine Glucose (UA) Negative mg/dL (NEG) Urine Ketones (Stick) Trace mg/dL (NEG) Urine Blood Large (NEG) Urine Nitrite Negative (NEG) Urine Bilirubin Small (NEG) Urine Urobilinogen Dipstick 0.2 mg/dL (0.2 mg/dL) Urine Leukocyte Esterase Small (NEG) Urine RBC Tntc /HPF (0-2) Urine WBC 20-40 /HPF (0-4) Urine Squamous Epithelial Cells Few /LPF Urine Bacteria 0 /HPF (0-FEW) Urine Hyaline Casts Occasional /HPF Urine Mucus Mod /LPF White Blood Count 11.6 x10^3/uL (4.0-11.0) Red Blood Count 4.50 x10^6/uL (4.30-5.70) Hemoglobin 13.7 g/dL (13.0-17.5) Hematocrit 41.2 % (39.0-53.0) Mean Corpuscular Volume 92 fL (79-100) Mean Corpuscular Hemoglobin 30 pg (25-35) Mean Corpuscular Hemoglobin Concent 33 g/dL (31-37) Red Cell Distribution Width 14.0 % (11.5-14.5) Platelet Count 306 x10^3/uL (140-400) Neutrophils (%) (Auto) 63 % (31-73) Lymphocytes (%) (Auto) 30 % (24-48) Monocytes (%) (Auto) 5 % (0-9) Eosinophils (%) (Auto) 1 % (0-3) Basophils (%) (Auto) 1 % (0-3) Neutrophils # (Auto) 7.3 x10^3uL (1.8-7.7) Lymphocytes # (Auto) 3.5 x10^3/uL (1.0-4.8) Monocytes # (Auto) 0.6 x10^3/uL (0.0-1.1) Eosinophils # (Auto) 0.1 x10^3/uL (0.0-0.7) Basophils # (Auto) 0.1 x10^3/uL (0.0-0.2) Sodium Level 136 mmol/L (136-145) Potassium Level 4.0 mmol/L (3.5-5.1) Chloride Level 100 mmol/L (98-107) Carbon Dioxide Level 27 mmol/L (21-32) Anion Gap 9 (6-14) Blood Urea Nitrogen 26 mg/dL (8-26) Creatinine 1.3 mg/dL (0.7-1.3) Estimated GFR (Cockcroft-Gault) 58.0 BUN/Creatinine Ratio 20 (6-20) Glucose Level 92 mg/dL (70-99) Calcium Level 9.3 mg/dL (8.5-10.1) Total Bilirubin 0.7 mg/dL (0.2-1.0) Aspartate Amino Transf (AST/SGOT) 17 U/L (15-37) Alanine Aminotransferase (ALT/SGPT) 19 U/L (16-63) Alkaline Phosphatase 74 U/L (46-116) Total Protein 7.6 g/dL (6.4-8.2) Albumin 3.7 g/dL (3.4-5.0) Albumin/Globulin Ratio 0.9 (1.0-1.7) Medications Current Medications Sodium Chloride 1,000 ml @ 1,000 mls/hr 1X ONCE IV Last administered on 06/19/18at 19:54; Start 06/19/18 at 20:00; Stop 06/19/18 at 20:59; Status DC Sodium Chloride 1,000 ml @ 1,000 mls/hr 1X ONCE IV Last administered on 06/19/18at 19:54; Start 06/19/18 at 20:00; Stop 06/19/18 at 20:59; Status DC Ceftriaxone Sodium (Rocephin) 1 gm 1X ONCE IVP Last administered on 06/19/18at 19:53; Start 06/19/18 at 20:00; Stop 06/19/18 at 20:01; Status DC Ketorolac Tromethamine (Toradol 30mg Vial) 30 mg 1X ONCE IV Last administered on 06/19/18at 20:11; Start 06/19/18 at 20:30; Stop 06/19/18 at 20:31; Status DC Sodium Chloride 1,000 ml @ 75 mls/hr [id number] IV Last administered on 06/21/18at 05:38; Start 06/20/18 at 01:45 Morphine Sulfate (Morphine Sulfate) 2 mg PRN Q2HR PRN IV PAIN; Start 06/20/18 at 01:45 Temazepam (Restoril) 15 mg PRN QHS PRN PO INSOMNIA Last administered on 06/20at 22:12; Start 06/20/18 at 01:45 Iohexol (Omnipaque 300 Mg/ml) 75 ml 1X ONCE IV Last administered on 06/20/18at 08:45; Start 06/20/18 at 08:45; Stop 06/20/18 at 08:46; Status DC Info (CONTRAST GIVEN -- Rx MONITORING) 1 each PRN DAILY PRN MC SEE COMMENTS; Start 06/20/18 at 09:00; Stop 06/22/18 at 08:59 Enoxaparin Sodium (Lovenox 40mg Syringe) 40 mg Q24H SQ ; Start 06/20/18 at 14:00 Nicotine (Nicoderm Cq 21mg) 1 patch DAILY TD Last administered on 06/21/18at 07:42; Start 06/20/18 at 15:30 Ondansetron HCl (Zofran) 4 mg PRN Q6HRS PRN IV NAUSEA/VOMITING; Start 06/21/18 at 07:15; Stop 06/21/18 at 20:00 Fentanyl Citrate (Fentanyl 2ml Vial) 25 mcg PRN Q5MIN PRN IV MILD PAIN; Start 06/21/18 at 07:15; Stop 06/21/18 at 20:00 Fentanyl Citrate (Fentanyl 2ml Vial) 50 mcg PRN Q5MIN PRN IV MODERATE TO SEVERE PAIN; Start 06/21/18 at 07:15; Stop 06/21/18 at 20:00 Morphine Sulfate (Morphine Sulfate) 1 mg PRN Q10MIN PRN IV SEVERE PAIN; Start 06/21/18 at 07:15; Stop 06/21/18 at 20:00 Ringer's Solution 1,000 ml @ 30 mls/hr Q24H IV ; Start 06/21/18 at 07:14; Stop 06/21/18 at 19:13 Hydromorphone HCl (Dilaudid) 0.5 mg PRN Q10MIN PRN IV SEV PAIN, Second choice; Start 06/21/18 at 07:15; Stop 06/21/18 at 20:00 Prochlorperazine Edisylate (Compazine) 5 mg PACU PRN PRN IV NAUSEA, MRX1; Start 06/21/18 at 07:15; Stop 06/21/18 at 20:00 Vitals/I & O Vital Sign - Last 24 Hours 06/20/18 06/20/18 06/20/18 06/20/18 08:00 11:00 15:00 19:00 Temp 98.0 97.6 98.2 98.0 97.6 98.2 Pulse 61 60 66 Resp 20 18 18 B/P (MAP) 119/69 (86) 98/70 (79) 99/65 (76) Pulse Ox 99 97 95 O2 Delivery Room Air Room Air Room Air Room Air 06/20/18 06/20/18 06/21/18 06/21/18 20:00 23:00 03:00 07:03 Temp 98.6 98.3 98.6 98.3 Pulse 62 58 Resp 18 18 B/P (MAP) 111/64 (80) 109/69 (82) Pulse Ox 95 96 O2 Delivery Room Air Room Air Room Air Room Air Intake and Output 06/20/18 06/20/18 06/21/18 15:00 23:00 07:00 Intake Total 1240 ml Output Total 975 ml Balance 265 ml ALLI SPARROW MD June 21, 2018 07:58
[2018-06-21] MEDS ORDERED: DEXAMETHASONE SOD PHOS 4 MG/ML VIAL ONE (08:50)
[2018-06-21] MEDS ORDERED: ceFAZolin SODIUM 1 GM VIAL ONE ×2 (09:08)
[2018-06-21] MEDS ORDERED: LIDOCAINE 2% PF 5 ML VIAL. ONE (09:09)
[2018-06-21] MEDS ORDERED: ONDANSETRON PF 4 MG/2 ML VIAL. ONE (09:09)
[2018-06-21] MEDS ORDERED: PROPOFOL 20 ML IV ONE (09:09)
[2018-06-21] MEDS ORDERED: SEVOFLURANE 31 TO 60 MINUTES. IH ONE (09:09)
[2018-06-21] MEDS ORDERED: MORPHINE SULFATE 10 MG/ML VIAL. ONE (09:31)
--- NOTE | 2018-06-21 09:55 | PDOC4 ---
OPERATIVE NOTE Date: Date: June 21, 2018 Pre-Op Diagnosis: left ureter and kidney stones Post-Op Diagnosis: same Procedure Performed: left ureteroscopy, basket of kidney and ureter stones, ureteral stent placement, retrograde pyleogram Surgeon: Erin Freitas MD Anesthesia Type: general Blood Loss: 0 Specimans Obtained: left kidney and ureter stones Findings: left kidney and ureter stones Complications: none Operative Note: see dictation. ok for d/c to home. f/u next week for stent removal [place] script on chart. ERIN FREITAS MD June 21, 2018 09:55
--- NOTE | 2018-06-21 09:57 | DISCH ---
DISCHARGE INSTRUCTIONS Condition on Discharge Condition on Discharge: Stable Activity After Discharge Activity Instructions for Disc: No restrictions Follow-Up Follow up with: Dr. Freitas 5-7 days for stent removal. [phone] ERIN FREITAS MD June 21, 2018 09:57
[2018-06-21] MEDS ORDERED: HYDROcodone/APAP 5/325MG 1 TAB TABLET PO PRN (10:00)
[2018-06-21 10:30] VITALS: BP 108/75
--- NOTE | 2018-06-21 12:30 | OP ---
DATE OF SURGERY: 06/21/2018 SURGEON: Erin Freitas M.D. [employer] MANAGER: None. PREOPERATIVE DIAGNOSIS: Left ureter and left kidney stones. POSTOPERATIVE DIAGNOSIS: Left ureter and left kidney stones. PROCEDURE PERFORMED: Left ureteroscopy with basket of ureter and kidney stones, stent placement, retrograde pyelogram. ANESTHESIA TYPE: General. INDICATIONS: This is a 53-year-old male admitted for renal colic due to a 6 mm left ureteral stone. He has failed attempts to pass the stone. After discussion of risks, benefits and alternatives, he agreed to the above procedure. Informed consent was obtained. DESCRIPTION OF PROCEDURE: The patient was taken to the operating room and general anesthesia was induced. He was placed in dorsal lithotomy position, sterilely prepped and draped. A timeout was performed. A rigid cystoscope was advanced through the urethra and into the bladder. A guidewire was advanced into the left ureter and up into the renal pelvis. The ureteral orifice appeared to be tight and was then dilated with a 12-[place] access sheath. A rigid ureteroscope was then easily able to advance alongside the wire and up to the stone in the mid left ureter. There was no evidence of ureteral trauma. The stone was grasped with a basket and then easily withdrawn and sent as a specimen. Next, a flexible ureteroscope was advanced alongside the wire and up into the renal pelvis. There was a stone identified in the middle pole. Two stones seen on CT in the lower pole could not be visualized due to the acute angle of the lower pole. The middle pole stone was grasped with the basket and then withdrawn without difficulty. The cystoscope was reintroduced into the bladder and a guidewire was advanced into the kidney. Of note, when the ureteroscope was in the kidney, a retrograde pyelogram was performed, which outlined the renal calices and showed moderate left hydronephrosis. The guidewire at the end of the case was seen curling in the middle pole of the kidney. A 6 x 26 cm stent was then advanced under fluoroscopic guidance through the scope and appropriate curl was seen in the middle pole as well as in the bladder. The bladder contents were emptied. The stent string was secured to the patient's penis with a sterile dressing. The patient was awakened and taken to the recovery room in stable condition. ESTIMATED BLOOD LOSS: None. COMPLICATIONS: None. SPECIMEN: Kidney and ureter stones. ERIN FREITAS MD DR: Sandrita JOB#: [id number] / [id number]
[2018-06-21 12:54] LABS: BASO % 0 % (0-3); EOS % 0 % (0-3); HEMATOCRIT 44.1 % (39.0-53.0); HEMOGLOBIN 14.5 g/dL (13.0-17.5); LYMPH # 0.9 x10^3/uL (1.0-4.8); LYMPH % 10 % (24-48); MEAN CORPUSCULAR HEMOGLOBIN 31 pg (25-35); MEAN CORPUSCULAR HGB CONC 33 g/dL (31-37); MEAN CORPUSCULAR VOLUME 93 fL (79-100); MONO # 0.1 x10^3/uL (0.0-1.1); MONO % 1 % (0-9); NEUT # 7.6 x10^3uL (1.8-7.7); NEUT % 88 % (31-73); PLATELET COUNT 287 x10^3/uL (140-400); RED BLOOD COUNT 4.75 x10^6/uL (4.30-5.70); RED CELL DISTRIBUTION WIDTH 14.1 % (11.5-14.5); WHITE BLOOD COUNT 8.6 x10^3/uL (4.0-11.0)
--- NOTE | 2018-06-21 13:00 | NUR ---
Discharge Note: BABAR UGALDE Discharge instructions and discharge home medications reviewed with Patient and patients and a copy given. All questions have been answered and understanding verbalized. The following instructions and handouts were given: information about ureteral stent. Discontinued lines and drains: IV line in left AC removed, catheter tip intact. Patient discharged to home with self care with , wheelchair used for mobility to discharge vehicle.
[2018-06-21 14:47] LABS: % BASOS 1 % (0-3); % EOS 1 % (0-5); % LYMPHS 13 % (24-48); % MONOS 3 % (0-10); % SEGS 82 % (35-66); PLT ESTIMATE ADEQUATE (ADEQUATE)
--- NOTE | 2018-06-21 15:10 | PDOC3 ---
Discharge Summary Date of Admission: June 19, 2018 Date of Discharge: June 21, 2018 Follow-Up: 3-5 days Admitting Diagnosis comment: DISCHARGE DX Assessment/Plan impression intractable pain, ureteral colic 6 mm stone in the left ureter with mild left-sided hydronephrosis. 6 mm distal left ureteral calculus with only mild associated partial obstruction. plan admit iv hydration iv pain control dvt prophylaxis urology consult DATE OF SURGERY: 06/21/2018 SURGEON: Deo Oakes M.D. WATER CHEMIST: None. PREOPERATIVE DIAGNOSIS: Left ureter and left kidney stones. POSTOPERATIVE DIAGNOSIS: Left ureter and left kidney stones. PROCEDURE PERFORMED: Left ureteroscopy with basket of ureter and kidney stones, stent placement, retrograde pyelogram. ANESTHESIA TYPE: General. INDICATIONS: This is a 53-year-old male admitted for renal colic due to a 6 mm left ureteral stone. He has failed attempts to pass the stone. After discussion of risks, benefits and alternatives, he agreed to the above procedure. Informed consent was obtained. Vitals Vitals Vital Signs Date Time Temp Pulse Resp B/P (MAP) Pulse Ox O2 Delivery O2 Flow Rate FiO2 06/21/18 07:03 Room Air 06/21/18 03:00 98.3 58 18 109/69 (82) 96 98.3 Physical Exam General: Alert, Oriented X3, Cooperative, No acute distress, mild distress Heart: Regular rate Lungs: Clear Abdomen: Normal bowel sounds, Soft Extremities: No cyanosis Skin: No breakdown FINAL DIAGNOSIS Problems Medical Problems: (1) Ureterolithiasis Status: Acute (2) UTI (urinary tract infection) Status: Acute Brief Hospital Course Mr. Barlow is a 53 old [sex] who presented with [ ] CONDITION AT DISCHARGE: Improved Discharge Medications Current Medications Sodium Chloride 1,000 ml @ 1,000 mls/hr 1X ONCE IV Last administered on 06/19/18at 19:54; Start 06/19/18 at 20:00; Stop 06/19/18 at 20:59; Status DC Sodium Chloride 1,000 ml @ 1,000 mls/hr 1X ONCE IV Last administered on 06/19/18at 19:54; Start 06/19/18 at 20:00; Stop 06/19/18 at 20:59; Status DC Ceftriaxone Sodium (Rocephin) 1 gm 1X ONCE IVP Last administered on 06/19/18at 19:53; Start 06/19/18 at 20:00; Stop 06/19/18 at 20:01; Status DC Ketorolac Tromethamine (Toradol 30mg Vial) 30 mg 1X ONCE IV Last administered on 06/19/18at 20:11; Start 06/19/18 at 20:30; Stop 06/19/18 at 20:31; Status DC Sodium Chloride 1,000 ml @ 75 mls/hr [id number] IV Last administered on 06/21/18at 05:38; Start 06/20/18 at 01:45; Stop 06/21/18 at 13:10; Status DC Morphine Sulfate (Morphine Sulfate) 2 mg PRN Q2HR PRN IV PAIN; Start 06/20/18 at 01:45; Stop 06/21/18 at 13:10; Status DC Temazepam (Restoril) 15 mg PRN QHS PRN PO INSOMNIA Last administered on 06/20/18at 22:12; Start 06/20/18 at 01:45; Stop 06/21/18 at 13:10; Status DC Iohexol (Omnipaque 300 Mg/ml) 75 ml 1X ONCE IV Last administered on 06/20/18at 08:45; Start 06/20/18 at 08:45; Stop 06/20/18 at 08:46; Status DC Info (CONTRAST GIVEN -- Rx MONITORING) 1 each PRN DAILY PRN MC SEE COMMENTS; Start 06/20/18 at 09:00; Stop 06/21/18 at 13:10; Status DC Enoxaparin Sodium (Lovenox 40mg Syringe) 40 mg Q24H SQ ; Start 06/20/18 at 14:00; Stop 06/21/18 at 13:10; Status DC Nicotine (Nicoderm Cq 21mg) 1 patch DAILY TD Last administered on 06/21/18at 07:42; Start 06/20/18 at 15:30; Stop 06/21/18 at 13:10; Status DC Ondansetron HCl (Zofran) 4 mg PRN Q6HRS PRN IV NAUSEA/VOMITING; Start 06/21/18 at 07:15; Stop 06/21/18 at 13:10; Status DC Fentanyl Citrate (Fentanyl 2ml Vial) 25 mcg PRN Q5MIN PRN IV MILD PAIN; Start 06/21/18 at 07:15; Stop 06/21/18 at 13:10; Status DC Fentanyl Citrate (Fentanyl 2ml Vial) 50 mcg PRN Q5MIN PRN IV MODERATE TO SEVERE PAIN; Start 06/21/18 at 07:15; Stop 06/21/18 at 13:10; Status DC Morphine Sulfate (Morphine Sulfate) 1 mg PRN Q10MIN PRN IV SEVERE PAIN; Start 06/21/18 at 07:15; Stop 06/21/18 at 13:10; Status DC Ringer's Solution 1,000 ml @ 30 mls/hr Q24H IV ; Start 06/21/18 at 07:14; Stop 06/21/18 at 13:10; Status DC Hydromorphone HCl (Dilaudid) 0.5 mg PRN Q10MIN PRN IV SEV PAIN, Second choice; Start 06/21/18 at 07:15; Stop 06/21/18 at 13:10; Status DC Prochlorperazine Edisylate (Compazine) 5 mg PACU PRN PRN IV NAUSEA, MRX1; Start 06/21/18 at 07:15; Stop 06/21/18 at 13:10; Status DC Iohexol (Omnipaque 300 Mg/ml) 50 ml STK-MED ONCE .ROUTE Last administered on 06/21/18at 09:18; Start 06/21/18 at 07:45; Stop 06/21/18 at 08:45; Status DC Dexamethasone Sodium Phosphate (Decadron) 4 mg STK-MED ONCE .ROUTE ; Start 06/21/18 at 08:50; Stop 06/21/18 at 08:51; Status DC Cefazolin Sodium (Ancef) 1 gm STK-MED ONCE .ROUTE ; Start 06/21/18 at 09:08; Stop 06/21/18 at 09:09; Status DC Cefazolin Sodium (Ancef) 1 gm STK-MED ONCE .ROUTE ; Start 06/21/18 at 09:08; Stop 06/21/18 at 09:09; Status DC Lidocaine HCl (Lidocaine Pf 2% Vial) 5 ml STK-MED ONCE .ROUTE ; Start 06/21/18 at 09:09; Stop 06/21/18 at 09:10; Status DC Propofol 20 ml @ As Directed STK-MED ONCE IV ; Start 06/21/18 at 09:09; Stop 06/21/18 at 09:10; Status DC Sevoflurane (Ultane) 30 ml STK-MED ONCE IH ; Start 06/21/18 at 09:09; Stop 06/21/18 at 09:10; Status DC Ondansetron HCl (Zofran) 4 mg STK-MED ONCE .ROUTE ; Start 06/21/18 at 09:09; Stop 06/21/18 at 09:10; Status DC Morphine Sulfate (Morphine Sulfate) 10 mg STK-MED ONCE .ROUTE ; Start 06/21/18 at 09:31; Stop 06/21/18 at 09:32; Status DC Acetaminophen/ Hydrocodone Bitart (Lortab 5/325) 1 tab PRN Q6HRS PRN PO PAIN Last administered on 06/21/18at 11:15; Start 06/21/18 at 10:00; Stop 06/21/18 at 13:10; Status DC Active Scripts Active No Active Prescriptions or Reported Medications Vital Signs Vital Signs Date Time Temp Pulse Resp B/P (MAP) Pulse Ox O2 Delivery O2 Flow Rate FiO2 06/21/18 12:00 99 Room Air 06/21/18 10:30 97.1 54 18 108/75 97.1 Labs Laboratory Tests Test 06/19/18 18:45 06/19/18 19:00 06/21/18 12:35 Urine Collection Type Unknown Urine Color Brown Urine Clarity Cloudy Urine pH 5.0 Urine Specific [place] 1.020 Urine Protein 100 mg/dL (NEG-TRACE) Urine Glucose (UA) Negative mg/dL (NEG) Urine Ketones (Stick) Trace mg/dL (NEG) Urine Blood Large (NEG) Urine Nitrite Negative (NEG) Urine Bilirubin Small (NEG) Urine Urobilinogen Dipstick 0.2 mg/dL (0.2 mg/dL) Urine Leukocyte Esterase Small (NEG) Urine RBC Tntc /HPF (0-2) Urine WBC 20-40 /HPF (0-4) Urine Squamous Epithelial Cells Few /LPF Urine Bacteria 0 /HPF (0-FEW) Urine Hyaline Casts Occasional /HPF Urine Mucus Mod /LPF White Blood Count 11.6 x10^3/uL (4.0-11.0) 8.6 x10^3/uL (4.0-11.0) Red Blood Count 4.50 x10^6/uL (4.30-5.70) 4.75 x10^6/uL (4.30-5.70) Hemoglobin 13.7 g/dL (13.0-17.5) 14.5 g/dL (13.0-17.5) Hematocrit 41.2 % (39.0-53.0) 44.1 % (39.0-53.0) Mean Corpuscular Volume 92 fL (79-100) 93 fL (79-100) Mean Corpuscular Hemoglobin 30 pg (25-35) 31 pg (25-35) Mean Corpuscular Hemoglobin Concent 33 g/dL (31-37) 33 g/dL (31-37) Red Cell Distribution Width 14.0 % (11.5-14.5) 14.1 % (11.5-14.5) Platelet Count 306 x10^3/uL (140-400) 287 x10^3/uL (140-400) Neutrophils (%) (Auto) 63 % (31-73) 88 % (31-73) Lymphocytes (%) (Auto) 30 % (24-48) 10 % (24-48) Monocytes (%) (Auto) 5 % (0-9) 1 % (0-9) Eosinophils (%) (Auto) 1 % (0-3) 0 % (0-3) Basophils (%) (Auto) 1 % (0-3) 0 % (0-3) Neutrophils # (Auto) 7.3 x10^3uL (1.8-7.7) 7.6 x10^3uL (1.8-7.7) Lymphocytes # (Auto) 3.5 x10^3/uL (1.0-4.8) 0.9 x10^3/uL (1.0-4.8) Monocytes # (Auto) 0.6 x10^3/uL (0.0-1.1) 0.1 x10^3/uL (0.0-1.1) Eosinophils # (Auto) 0.1 x10^3/uL (0.0-0.7) 0.0 x10^3/uL (0.0-0.7) Basophils # (Auto) 0.1 x10^3/uL (0.0-0.2) 0.0 x10^3/uL (0.0-0.2) Sodium Level 136 mmol/L (136-145) Potassium Level 4.0 mmol/L (3.5-5.1) Chloride Level 100 mmol/L (98-107) Carbon Dioxide Level 27 mmol/L (21-32) Anion Gap 9 (6-14) Blood Urea Nitrogen 26 mg/dL (8-26) Creatinine 1.3 mg/dL (0.7-1.3) Estimated GFR (Cockcroft-Gault) 58.0 BUN/Creatinine Ratio 20 (6-20) Glucose Level 92 mg/dL (70-99) Calcium Level 9.3 mg/dL (8.5-10.1) Total Bilirubin 0.7 mg/dL (0.2-1.0) Aspartate Amino Transf (AST/SGOT) 17 U/L (15-37) Alanine Aminotransferase (ALT/SGPT) 19 U/L (16-63) Alkaline Phosphatase 74 U/L (46-116) Total Protein 7.6 g/dL (6.4-8.2) Albumin 3.7 g/dL (3.4-5.0) Albumin/Globulin Ratio 0.9 (1.0-1.7) Segmented Neutrophils % 82 % (35-66) Lymphocytes % 13 % (24-48) Monocytes % 3 % (0-10) Eosinophils % 1 % (0-5) Basophils % 1 % (0-3) Platelet Estimate Adequate (ADEQUATE) Laboratory Tests Test 06/21/18 12:35 White Blood Count 8.6 x10^3/uL (4.0-11.0) Red Blood Count 4.75 x10^6/uL (4.30-5.70) Hemoglobin 14.5 g/dL (13.0-17.5) Hematocrit 44.1 % (39.0-53.0) Mean Corpuscular Volume 93 fL (79-100) Mean Corpuscular Hemoglobin 31 pg (25-35) Mean Corpuscular Hemoglobin Concent 33 g/dL (31-37) Red Cell Distribution Width 14.1 % (11.5-14.5) Platelet Count 287 x10^3/uL (140-400) Neutrophils (%) (Auto) 88 % (31-73) Lymphocytes (%) (Auto) 10 % (24-48) Monocytes (%) (Auto) 1 % (0-9) Eosinophils (%) (Auto) 0 % (0-3) Basophils (%) (Auto) 0 % (0-3) Neutrophils # (Auto) 7.6 x10^3uL (1.8-7.7) Lymphocytes # (Auto) 0.9 x10^3/uL (1.0-4.8) Monocytes # (Auto) 0.1 x10^3/uL (0.0-1.1) Eosinophils # (Auto) 0.0 x10^3/uL (0.0-0.7) Basophils # (Auto) 0.0 x10^3/uL (0.0-0.2) Segmented Neutrophils % 82 % (35-66) Lymphocytes % 13 % (24-48) Monocytes % 3 % (0-10) Eosinophils % 1 % (0-5) Basophils % 1 % (0-3) Platelet Estimate Adequate (ADEQUATE) Allergies Allergies Coded Allergies Type Severity Reaction Last Updated Verified levofloxacin Allergy Unknown 06/19/18 Yes Disposition/Orders: D/C to Home Patient Instructions D/C PLANNING 35 MIN ALLI SPARROW MD June 21, 2018 15:10
--- NOTE | 2018-06-24 09:08 | PATHOLOGY ---
[facility] Accession Number: [id number] . 01 Material submitted: . ureter - STONE. Modifiers: left . 01 Clinical history: . None provided . 02 Diagnosis: Stone: - Consistent with calculi. - The specimen is sent out for further processing. Report pending outside analysis with results to follow in an addendum. LBQ/06/23/2018 . 02 Electronically signed: . Tiago Duncan MD, Pathologist NPI- [id number] . 01 Gross description: . The specimen is received fresh, labeled "[place]". Received are two dark brown calculi measuring 0.2 and 0.6 cm each in maximum dimensions. The specimen is forwarded to sendouts for further processing. (CAA; 06/23/2018) QAC/QAC . 02 Pathologist provided ICD-10: N20.1 . 02 CPT . 345618 Specimen Comment: A courtesy copy of this report has been sent to Specimen Comment: [phone], , . Specimen Comment: Report sent to ,DR JIMENES / DR RODRIGUEZ Specimen Comment: A duplicate report has been generated due to demographic updates. Performed at: 01 [facility] [address], [place], [place] [id number] MD Asim Kay MD Phone: [phone] Performed at: 02 [facility] [address], [place] [id number] MD Tiago Duncan MD Phone: [phone]
== END 2018-06-21 13:00 | disposition home or self-care (01) | DRG 661 ==
LOC: ER 18:37 → 4 NORTH 20:55
PROVIDERS: ADMIT Internal Medicine; ATTEND Internal Medicine
PROC: 0TC48ZZ Extirpation of Matter from Left Kidney Pelvis, Via Natural or Artificial Opening Endoscopic (ICD-10-PCS; 2018-06-21)
PROC: 0TC78ZZ Extirpation of Matter from Left Ureter, Via Natural or Artificial Opening Endoscopic (ICD-10-PCS; 2018-06-21)
PROC: BT1F1ZZ Fluoroscopy of Left Kidney, Ureter and Bladder using Low Osmolar Contrast (ICD-10-PCS; 2018-06-21)
PROC: 0T778DZ Dilation of Left Ureter with Intraluminal Device, Via Natural or Artificial Opening Endoscopic (ICD-10-PCS; principal; 2018-06-21 09:00)
DX: N13.6 Pyonephrosis (principal); E78.00 Pure hypercholesterolemia, unspecified; F17.210 Nicotine dependence, cigarettes, uncomplicated; Z87.442 Personal history of urinary calculi; Z98.52 Vasectomy status
CPT/HCPCS: 36415; 74018; 74178; 76000; 80053; 81001; 82365; 85007; 85025; 87086; 88300; 96360; C1769; C2617; J0690; J0696; J1100; J1885; J2001; J2270; J2405; J2704; J7030; Q9967; 99285-25